=== PATIENT | male | born 1985 | race African-American/Black ===

== ENCOUNTER 2020-05-05 09:21 | Emergency (ER) | payer SELFPAY ==
[~2020-05-05] VITALS: Ht 185.4 cm; Wt 150.0 kg
[2020-05-05 09:41] VITALS: BP 130/79
[2020-05-05 10:36] LABS: CLARITY URINE CLEAR (CLEAR); COLOR URINE YELLOW (YELLOW); KETONES URINE NEGATIVE (NEGATIVE); LEUKOCYTE ESTERASE URINE NEGATIVE (NEGATIVE); NITRITE URINE NEGATIVE (NEGATIVE); OCCULT BLOOD URINE NEGATIVE (NEGATIVE); PH URINE 5.5 (4.5-8.0); PROTEIN URINE NEGATIVE (NEGATIVE); SPECIFIC GRAVITY URINE 1.011 (1.005-1.030); UROBILINOGEN URINE 0.2 E.U./dL (0.2-1.0)
[2020-05-05] MEDS ORDERED: CEFTRIAXONE SODIUM 250 MG/VIAL IM ONE (10:45)
[2020-05-05] MEDS ORDERED: LIDOCAINE HCL 1% 20ML VIAL (Pyxis) INJ INFIL ONE (10:45)
[2020-05-05] MEDS ORDERED: AZITHROMYCIN 500 MG TABLET PO ONE (10:45)
== END 2020-05-05 11:05 | disposition home or self-care (01) ==
LOC: ER 09:21
DX: N34.2 Other urethritis (principal)
CPT/HCPCS: 81003; 96372; 99283; J0696; J3490

== ENCOUNTER 2021-11-14 13:51 | Emergency (ER) | payer OTHER ==
[~2021-11-14] VITALS: Ht 185.4 cm; Wt 150.0 kg
[2021-11-14] MEDS ORDERED: IBUPROFEN 600MG TABLET PO ONE (15:00)
[2021-11-14] MEDS ORDERED: GUAI400T93 MT (19:53)
[2021-11-14] MEDS ORDERED: BENZ100C86 MT (19:53)
[2021-11-14 20:05] VITALS: BP 155/78
== END 2021-11-14 20:05 | disposition home or self-care (01) ==
LOC: ER 13:51
DX: J20.9 Acute bronchitis, unspecified (principal); B33.8 Other specified viral diseases; Z88.8 Allergy status to other drugs, medicaments and biological substances; Z79.899 Other long term (current) drug therapy; Z98.890 Other specified postprocedural states
CPT/HCPCS: 71045; 93005; 99285